=== PATIENT | female | born 1970 | race Caucasian/White ===

== ENCOUNTER 2016-05-10 21:25 | Emergency (ER) | payer MEDICAID ==
[~2016-05-10] VITALS: Ht 162.6 cm; Wt 79.5 kg
[~2016-05-10 21:25] MED LIST: PROC5TAB29; [UNRECOGNIZED DRUG - CODE]
[2016-05-10 21:38] VITALS: Ht 162.6 cm; Wt 79.5 kg
[2016-05-10] MEDS ORDERED: KETOROLAC 15 MG INJ IM STA (22:50)
[2016-05-10] MEDS ORDERED: ONDANSETRON (ODT) 4 MG TAB ODT STA (22:50)
--- NOTE | 2016-05-10 22:55 | ERD ---
ER Documentation Chief Complaint Date/Time DATE: 05/10/16 TIME: 22:51 Chief Complaint HEADACHE SINCE MONDAY HPI This 45-year-old female presents to emergency department today with her son for translation reports headache 3 days. Patient reports headache is on the left side of her head, pounding. Patient reports dizziness, nausea, vomiting, photosensitivity in pain greater than 8 out of 10. Patient has history of headaches, this is not the worst headache of her entire life, patient has had similar headaches in the past has been evaluated by primary care physician but is on no migraine prevention medication. Reports no routine medication. Patient denies any numbness or tingling to her extremities, denies chest pain palpitations shortness of breath. Speech is clear, thought process is due to follow ROS All systems reviewed and are negative except as per history of present illness. Medications Home Meds Reported Medications Prochlorperazine* (Compazine*) 5 Mg Tablet 07/06/10 Belladonna Alkaloids/Phenobarb (Belladonna-Phenobarbital Tab) 16.2 Mg Tablet 07/06/10 Allergies Allergies: Coded Allergies: No Known Drug Allergies (Verified Allergy, Mild, 07/06/10) PMhx/Soc History of Surgery: No Anesthesia Reaction: No Hx Neurological Disorder: No Hx Respiratory Disorders: No Hx Cardiac Disorders: No Hx Psychiatric Problems: No Hx Miscellaneous Medical Probl: No Hx Alcohol Use: No Hx Substance Use: No Hx Tobacco Use: No Smoking Status: Never smoker Physical Exam Vitals Vital Signs Date Time Temp Pulse Resp B/P Pulse Ox O2 Delivery O2 Flow Rate FiO2 05/10/16 21:38 97.4 72 16 137/73 99 Vitals stable triage notes reviewed Physical Exam Const: Head: Atraumatic Eyes: Normal Conjunctiva PERRLA, EOMI ENT: Panic membranes translucent, dull, retracted, auditory canals clear, nasal mucosa moist, pharynx pink uvula rises and falls with pronation Neck: Full range of motion. No paraspinal tenderness cervical point tenderness rhomboid tenderness or trapezius tenderness. Resp: Cardio: Abd: Skin: Back: Ext: Neur: Speech is clear, pupils equal round and reactive to light and accommodation, sensation to light touch is intact bilaterally. There is no pronator drift. Finger to nose test is intact bilaterally. Cabinet Maker strength is 5/ 5. Flexion and extension is intact bilaterally Psych: Normal Mood and Affect Results 24 hrs Current Medications Medications (Trade) Dose Ordered Sig/Jason Route PRN Reason Start Time Stop Time Status Last Admin Dose Admin Ketorolac Tromethamine (Toradol) 15 mg ONCE STAT IM 05/10/16 22:50 05/10/16 22:52 DC 05/11/16 00:13 Ondansetron HCl (Zofran Odt) 4 mg ONCE STAT ODT 05/10/16 22:50 05/10/16 22:52 DC 05/11/16 00:13 Ibuprofen (Motrin) 600 mg ONCE ONCE PO 05/10/16 23:00 05/10/16 23:01 DC 05/11/16 00:13 Procedures/MDM 45-year-old female presents to emergency department with her son with complaint of left-sided headache, headache is described as pounding with associated dizziness nausea, vomiting and photophobia. Differential diagnosis includes but not limited to headache migraine type, subarachnoid bleed, or mass, sinusitis. Subarachnoid bleed mass or sinusitis is not suspected. Physical exam and history do not support diagnosis. Patient denies that headache is the worst headache of her life, denies knowing the exact onset of headache. Patient reports no sinus symptoms, nasal congestion, fever or chills. Nurse practitioner decides to treat with Zofran for nausea, Toradol and Motrin to break headache symptoms. Patient remains in emergency room for an hour and a half after treatment post assessment patient reports pain has improved. No longer light sensitive, nausea has subsided. I feel patient is candidate for outpatient management and follow-up with primary care physician for full headache evaluation. I feel the patient is stable for discharge at this time. I have discussed results, examination findings, the treatment plan with the patient and family present prior to discharge. Indications for emergent reevaluation, side effects of medication were also discussed. All questions were answered. Patient verbalizes understanding and agrees with plan of care. Departure Diagnosis: Primary Impression: Headache Headache type: unspecified Headache chronicity pattern: unspecified pattern Intractability: not intractable Qualified Code: R51 - Nonintractable headache, unspecified chronicity pattern, unspecified headache type Condition: Good Patient Instructions: Self-Care for Headaches [facility] Additional Instructions: Thank you for for coming to I feel the patient is stable for discharge at this time. I have discussed results, examination findings, the treatment plan with the patient and family present prior to discharge. Indications for emergent reevaluation, side effects of medication were also discussed. All questions were answered. Patient verbalizes understanding and agrees with plan of care. For your care today. Please ask your nurse or provider if you have questions about your care today and do not leave until all your questions have been answered. Please use any medications given as directed and follow-up with your doctor (or the doctor you were referred to) in the next 2-3 days. If you do not have a primary care doctor you may follow up at the [facility] (listed below). You may also use motrin and tylenol as needed for fever and/or pain unless instructed otherwise by your provider or nurse. Indications for more urgent follow-up have been discussed, but you may return to the Emergency Department at ANY time for any worrisome or worsening symptoms. If you have abdominal pain, please know that no test or exam you received is perfect and you should follow up within 8 hours for continued pain. If you had any imaging studies today, such as an X-Ray or CT Scan, these studies will be reviewed later by a radiologist. You will be called if there are important findings that were not identified today, so make sure the contact information you provided at registration is correct. If you received any narcotic pain control medicine today, such as Vicodin, Morphine or Dilaudid, your coordination and judgment may be affected for a number of hours. Please do not drive or operate heavy machinery, and you may want someone to assist you at home. If you were given a prescription for narcotic medication, be aware that it is very addictive- use sparingly and only if necessary. RACHELLE JEFFERY May 10, 2016 22:55
[2016-05-10] MEDS ORDERED: IBUPROFEN 600 MG TAB PO ONE (23:00)
[2016-05-11] MEDS ORDERED: IBUP-1542 PO (01:15)
[2016-05-11] MEDS ORDERED: ONDA4TAB14 PO (01:16)
[2016-05-11 01:21] VITALS: BP 124/73; PULSE 78; RESP 16; TEMP 98.9
== END 2016-05-11 01:37 | disposition home or self-care (01) ==
LOC: FTE 21:25
DX: R51 Headache (principal); R11.2 Nausea with vomiting, unspecified
CPT/HCPCS: 96372; J1885; Z7502; Z7610